=== PATIENT | male | born 1945 | race Caucasian/White ===

== ENCOUNTER 2023-06-07 12:27 | Emergency (ER) | payer MEDICARE, OTHER, SELFPAY ==
[2023-06-07] VITALS (10 sets, daily range): BP systolic 139–201; BP diastolic 61–99; BMI 25.6
[2023-06-07 13:42] LABS: % Basophils 0.4 % (0-2); % Eosinophils 0.9 % (0-6); % Immature Granulocytes 0.3 % (0-0.5); % Lymphocytes 11.6 % (20.5-51.1); % Monocytes 5.4 % (1.7-9.3); % Neutrophils 81.4 % (42.2-75.2); Absolute Eosinophils 0.1 10^3/uL (0-0.7); Absolute Lymphocytes 1.1 10^3/uL (1.2-3.4); Absolute Monocytes 0.5 10^3/uL (0.1-0.6); Absolute Neutrophils 7.9 10^3/uL (1.4-6.5); Hematocrit 33.5 % (39.0-52.0); Hemoglobin 11.8 g/dL (13.0-18.0); Mean Corp Hgb Conc. 35.2 g/dL (33.0-37.0); Mean Corpuscular Hgb 30.4 pg (27.0-31.0); Mean Corpuscular Volume 86.3 fL (80.0-94.0); Mean Platelet Volume 9.6 fL (7.4-10.4); Nucleated Red Blood Cells % 0 % (-); Platelet Count 226 10^3/uL (130-400); Red Blood Cell Count 3.88 10^6/uL (4.70-6.10); Red Cell Dist. Width 13.8 % (11.5-14.5); White Blood Cell Count 9.7 10^3/uL (4.8-10.8)
[2023-06-07 14:06] LABS: Blood Urea Nitrogen 37 mg/dl (9-20); Calcium 9.2 mg/dl (8.4-10.2); Carbon Dioxide 22 mmol/L (22-30); Chloride 108 mmol/L (98-107); Estimated Creatinine Clearance 46 ml/min; Glucose 200 mg/dl (70-99); Sodium 135 mmol/L (135-145); eGFR 51.77
--- NOTE | 2023-06-07 14:49 | ED.GENMED ---
History of Present Illness
General
Chief Complaint: Visual Problem
Source: patient
Exam Limitations: none
Time Seen by Provider: 06/07/23 13:20
Nursing documentation reviewed up to this point in time: agreed with
Travel History
Have you had any contact with someone who has COVID-19?: No
Do you have any symptoms of coronavirus? Fever > 100 degrees, chills, cough, shortness of breath, sore throat, loss of taste or smell, muscle aches, or headache?: No
History of Present Illness
History of Present Illness:
pt is a 78 y/o M with h/o IDDM, HTN, HLD, BPH
here with c/o dipolpia since yesterday am when he woke up. pt says that he doesn't know which eye is the problem
he says it is with distance but not up close and if he covers either eye, it goes away
he sees sometimes picture on top of picture and sometimes side by side
he hasn't had any headache, facial numbness, facial droop, dizziness, scalp pain, trouble swallowing, neck pain, ewakness/nubmness in the arms or legs, balance problems, slurred speech
he has had a little tearing form his right eye and redness \\
no h/o vision problems
Past History
Past History
ED Past Medical History: COPD, HTN and NIDDM
ED Past Surgical History: Appendectomy
Social History
Tobacco: Former smoker
Alcohol: Occasional
Drug: None
Family History
Family History: CAD
Review of Systems
Review of Systems
Allergies reviewed?: Yes
All Other Systems: Not applicable
Phy Exam
Physical Exam
Physical Exam:
GENERAL: Alert , in no apparent distress
EYE: pupils equal and reactive
right conjunctiva is minimally injected
slight clear tearing
slight ectropion right lower lid
eoms seem intact
no obvious lid lag
NECK: Supple
ENT: b/l TM s clear, pharynx erythematous but no tonsillar hypertrophy or exudates
CARDIAC: Regular rate and rhythm, no edema
LUNGS: Clear breath sounds bilaterally, no acute respiratory distress, no wheezes/rales/rhonchi, occ cough
ABDOMEN: Soft, without focal tenderness, no r/g, no cvat, normal bowel sounds
NEUROLOGICAL: Alert and oriented, no focal neuro deficits
i do feel that the patient sounds like his speech is a little thick
SKIN: Warm and dry, skin intact.
MUSCULOSKELETAL: No edema, well perfused.
PSYCH: Normal and appropriate interaction.
Course
Orders/Labs/Results
Orders:
Orders
06/07/23 13:31
Basic Metabolic Panel Urgent
Complete Blood Count/With Diff Urgent
06/07/23 13:46
Electrocardiogram (*1) Urgent
Reason for Study: Vertigo / Dizzy
CT Head W/o Iv Contrast Urgent
Comment:
Reason For Exam: diplopia since yesterday
EKG- Treatment ONCE
06/07/23 14:00
Add On- LAB Urgent
Tests Added?: TSH
06/07/23 14:15
Comprehensive Metabolic Panel Urgent
TSH Reflex To Free T4 Urgent
06/07/23 16:45
Ertapenem [Invanz] 1,000 mg 0.9% Sodium Chloride [Nss] 50 ml IV NOW
06/07/23 17:25
HydrALAZINE [Apresoline] 10 mg PO NOW STA
METFORMIN HCl [Glucophage] 1,000 mg PO NOW STA
06/07/23 18:09
0.9% Sodium Chloride 1000 ml [Nss] 1,000 ml IV BOLUS
06/07/23 18:16
HydrALAZINE [Apresoline] 10 mg IV NOW STA
06/07/23 18:51
Insulin Aspart [NOVOLOG vial] 2 units SC NOW STA
Abnormal Lab Results
06/07/23 06/07/23 06/07/23
13:31 14:15 17:23
RBC 3.88 L 10^6/uL
(4.70-6.10)
Hgb 11.8 L g/dL
(13.0-18.0)
Hct 33.5 L %
(39.0-52.0)
Absolute Neuts (auto) 7.9 H 10^3/uL
(1.4-6.5)
Absolute Lymphs (auto) 1.1 L 10^3/uL
(1.2-3.4)
Neutrophils % 81.4 H %
(42.2-75.2)
Lymphocytes % 11.6 L %
(20.5-51.1)
Chloride 108 H mmol/L 108 H mmol/L
(98-107) (98-107)
BUN 37 H mg/dl 36 H mg/dl
(9-20) (9-20)
Creatinine 1.4 H mg/dL 1.5 H mg/dL
(0.7-1.3) (0.7-1.3)
Glucose 200 H mg/dl 188 H mg/dl
(70-99) (70-99)
POC Glucose 228 H mg/dl
(70-99)
06/07/23 06/07/23
18:45 21:26
RBC
Hgb
Hct
Absolute Neuts (auto)
Absolute Lymphs (auto)
Neutrophils %
Lymphocytes %
Chloride
BUN
Creatinine
Glucose
POC Glucose 212 H mg/dl 126 H mg/dl
(70-99) (70-99)
06/07/23 13:31
06/07/23 14:15
Vital Signs
Initial and Last Documented VS:
Initial Vital Signs
Temp Pulse Resp BP Pulse Ox
97.8 F 60 16 139/99 96
06/07/23 12:32 06/07/23 12:32 06/07/23 12:32 06/07/23 12:32 06/07/23 12:32
Last Documented Vital Signs
Temp Pulse Resp BP Pulse Ox
98 F 65 20 181/86 97
06/07/23 21:00 06/07/23 21:00 06/07/23 21:00 06/07/23 21:00 06/07/23 21:00
MDM/Problems Addressed
MDM/Problems Addressed:
1 mary worley 78 y/o M with htn, hld, dm; c/o diplopia since yesterday AM; he sees it with distance only; says that if he covers 1 eye (either eye) he doesn' t have it; it's strange; sometimes vertical and sometimes side by side; he doesn't have
it now for my exam; no h/o myasthenia; he does have a little tearing and redness in right eye and almost a midl ectropion; no visual field cuts and i don't apprecaite any EOM weakness; i feel like his speech sounds a little thick but he doesn't
think so
w/u unremakable
d/w neurologist dr. sy who recommended admit, neuro consult and MRI.
Findings suggest a right posterior ethmoid air cell with chronic sinus disease and resultant erosion of the medial right orbital wall. Extension of presumed inflammatory sinus disease through this defect into the right orbit abutting the margin of
the medial rectus muscle. This could be the cause of patient's diplopia.
i spokie with consultant teacher ENT and opthalmologist who both recommended pt be transferred to a tertiary care center with rhinology/opthalmology
pt would prefer to stay out of the [facility], so i attempted [facility] but then they derferred to [facility]
will try [facility]
06/07/2023 1832 PM
Patient accepted by Dr. Harper at [facility] to ER transfer after I spoke with Dr. Nguyen from ENT who was recommending that the patient remain n.p.o. in case he needs to have surgery tonight patient's blood pressure has been creeping up, he
missed a dose of his hydralazine. He was given it orally but continued to have blood pressures in the 200/80 range. I added another IV dose of hydralazine
, Some fluids for his hyperglycemia
And he already received his IV antibiotics.
*Critical Care Note
Total Time (30-74mins, 75-104mins- exclusive of procedures): Not Applicable
ED Attending Note
-
Portions of this chart may have been created with voice recognition software.� Occasional wrong word or��sound alike� substitutions may have occurred due to the inherent limitations of voice recognition software.
Discharge Plan
Departure
Patient Disposition: Acute Care Hospital
Date of Disposition: 06/07/23
Time of Disposition: 18:24
Condition: Fair
Discharge Problem:
Suppurative sinusitis with complications, Diplopia
Prescriptions:
No Action
hydralazine 10 MG tablet
10 mg PO TID
metformin 1,000 MG tablet
1,000 mg PO BID@0800,1700
flecainide 100 MG tablet
100 mg PO Q12H
insulin lispro [Humalog KwikPen Insulin] 100 UNIT/ML insulin pen
5 units SC MEALS
Xarelto 15 MG tablet
15 mg PO QPM
finasteride 5 MG tablet
5 mg PO DAILY
cyanocobalamin (vitamin B-12) 1,000 MCG tablet
1,000 mcg PO DAILY Qty: 30 0RF
diltiazem HCl 120 mg Capsule,Extended Release 12 Hr
120 mg PO DAILY
Patient Comments:
06/07/23- patient stated he is on the 12hr capsules cause he didnt want to pay for 24 hr but he knows he suppose to be on the 24hours
valsartan 160 mg Tablet
160 mg PO DAILY
rosuvastatin [Crestor] 20 mg Tablet
20 mg PO QPM
duloxetine [Cymbalta] 30 mg Capsule,Delayed Release(Dr/Ec)
30 mg PO QPM
Levemir FlexPen 100 unit/mL (3 mL) Insulin Pen
30 unit SC HS
Referrals:
Bartolome Hitchcock MD [Family Provider] -
Hospital Transfer
Other hospital: [facility]
I certify that the patient requires transfer: Yes
Discussed case with accepting physician: ton
Reason for transfer: higher level of care
Interventions
Interventions:
*Risk Screen - Suicide Last Done: 06/07/23 12:32
*General Assessment Last Done: 06/07/23 13:24
*Neglect/Abuse Screening Last Done: 06/07/23 12:32
ED- Fall Risk Assessment Last Done: 06/07/23 13:24
*ED COVID-19 Vaccine History Last Done: 06/07/23 12:32
*Nursing Disposition Last Done: 06/07/23 19:28
ED- Neurological Assessment Last Done: 06/07/23 21:00
ED-EENT Assessment Last Done: 06/07/23 21:00
ED Swallowing Screen Last Done: 06/07/23 18:48
Discharge Date and Time
Discharge Date/Time: 06/07/23 21:30
[2023-06-07 14:58] LABS: ALT (SGPT) 27 U/L (0-50); AST (SGOT) 28 U/L (17-59); Albumin 3.8 g/dl (3.5-5.0); Alkaline Phosphatase 110 U/L (38-126); Blood Urea Nitrogen 36 mg/dl (9-20); Calcium 9.2 mg/dl (8.4-10.2); Carbon Dioxide 24 mmol/L (22-30); Chloride 108 mmol/L (98-107); Estimated Creatinine Clearance 43 ml/min; Glucose 188 mg/dl (70-99); Potassium 4.4 mmol/L (3.5-5.1); Sodium 137 mmol/L (135-145); Total Bilirubin 0.6 mg/dl (0.2-1.3); Total Protein 6.4 g/dl (6.3-8.2); eGFR 47.65
[2023-06-07 15:12] LABS: TSH Reflex To Free T4 0.64 uIU/ml (0.47-4.68)
[2023-06-07 17:25] LABS: Glucose - Point of Care 228 mg/dl (70-99)
[2023-06-07] MEDS: GLUCOPHAGE 1000 MG PO (17:36)
[2023-06-07] MEDS: INVANZ 60 MG IV (17:36)
[2023-06-07] MEDS: APRESOLINE 10 MG PO (17:36)
[2023-06-07] MEDS: APRESOLINE 10 MG IV (18:42)
[2023-06-07 18:47] LABS: Glucose - Point of Care 212 mg/dl (70-99)
[2023-06-07] MEDS: NOVOLOG vial 2 UNITS SC (19:40)
[2023-06-07 21:27] LABS: Glucose - Point of Care 126 mg/dl (70-99)
== END 2023-06-07 21:30 | disposition short-term general hospital (02) ==
LOC: EMR 12:27
PROVIDERS: Physician Assistant; EMERGENCY PHYSICIAN Emergency Medicine; FAMILY PHYSICIAN Family Medicine
DX: H53.2 Diplopia (principal); J01.90 Acute sinusitis, unspecified; E11.65 Type 2 diabetes mellitus with hyperglycemia; I10 Essential (primary) hypertension; E78.5 Hyperlipidemia, unspecified; N40.0 Benign prostatic hyperplasia without lower urinary tract symptoms
CPT/HCPCS: 99285; 96374; 96375; 96372; 70450; 80048; 80053; 82962; 84443; 85025; 93005; J1335

== ENCOUNTER → 2023-09-04 07:09 | Outpatient (REF) | payer MEDICARE, OTHER, SELFPAY ==
[2023-09-04 08:19] LABS: % Basophils 0.9 % (0-2); % Eosinophils 3.5 % (0-6); % Immature Granulocytes 0.3 % (0-0.5); % Lymphocytes 14.5 % (20.5-51.1); % Monocytes 7.7 % (1.7-9.3); % Neutrophils 73.1 % (42.2-75.2); Absolute Basophils 0.1 10^3/uL (0-0.2); Absolute Eosinophils 0.2 10^3/uL (0-0.7); Absolute Monocytes 0.5 10^3/uL (0.1-0.6); Absolute Neutrophils 5.1 10^3/uL (1.4-6.5); Hematocrit 41.8 % (39.0-52.0); Hemoglobin 13.7 g/dL (13.0-18.0); Mean Corp Hgb Conc. 32.8 g/dL (33.0-37.0); Mean Corpuscular Hgb 29.8 pg (27.0-31.0); Mean Corpuscular Volume 90.9 fL (80.0-94.0); Mean Platelet Volume 9.9 fL (7.4-10.4); Nucleated Red Blood Cells % 0 % (-); Platelet Count 241 10^3/uL (130-400); White Blood Cell Count 6.9 10^3/uL (4.8-10.8)
[2023-09-04 08:56] LABS: Protein/creatinine Ratio 0.8; Urine Protein 55 mg/dl
[2023-09-04 09:15] LABS: ALT (SGPT) 38 U/L (0-50); AST (SGOT) 44 U/L (17-59); Albumin 4.3 g/dl (3.5-5.0); Alkaline Phosphatase 112 U/L (38-126); Blood Urea Nitrogen 41 mg/dl (9-20); Calcium 10.4 mg/dl (8.4-10.2); Carbon Dioxide 26 mmol/L (22-30); Chloride 107 mmol/L (98-107); Glucose 123 mg/dl (70-99); HDL Cholesterol 61 mg/dl; LDL Cholesterol, Calculated 93 mg/dl; Potassium 5.1 mmol/L (3.5-5.1); Sodium 141 mmol/L (135-145); Total Bilirubin 0.4 mg/dl (0.2-1.3); Total Cholesterol 174 mg/dl (50-199); Total Protein 7.3 g/dl (6.3-8.2); Triglyceride 101 mg/dl (10-149); Very Low Density Lipoprotein 20 mg/dl (0-30); eGFR 51.77
[2023-09-04 09:29] LABS: Microalbumin, Random Urine 28.2 mg/dl (0.6-1.7); Microalbumin/creatinine Ratio 420.3 mg/g
== END ==
LOC: REG 07:09
PROVIDERS: ATTENDING PHYSICIAN Physician Assistant; FAMILY PHYSICIAN Family Medicine
DX: E11.65 Type 2 diabetes mellitus with hyperglycemia (principal)
CPT/HCPCS: 36415; 80053; 80061; 82043; 82570; 83036; 84156; 85025

== ENCOUNTER → 2024-05-11 07:23 | Outpatient (REF) | payer MEDICARE, OTHER, SELFPAY ==
[2024-05-11 09:11] LABS: % Basophils 0.5 % (0-2); % Eosinophils 2.5 % (0-6); % Immature Granulocytes 0.3 % (0-0.5); % Lymphocytes 15.3 % (20.5-51.1); % Monocytes 7.6 % (1.7-9.3); % Neutrophils 73.8 % (42.2-75.2); Absolute Eosinophils 0.2 10^3/uL (0-0.7); Absolute Lymphocytes 1.1 10^3/uL (1.2-3.4); Absolute Monocytes 0.6 10^3/uL (0.1-0.6); Absolute Neutrophils 5.4 10^3/uL (1.4-6.5); Hematocrit 40.1 % (39.0-52.0); Hemoglobin 13.5 g/dL (13.0-18.0); Mean Corp Hgb Conc. 33.7 g/dL (33.0-37.0); Mean Corpuscular Hgb 30.3 pg (27.0-31.0); Mean Corpuscular Volume 89.9 fL (80.0-94.0); Nucleated Red Blood Cells % 0 % (-); Platelet Count 227 10^3/uL (130-400); Red Blood Cell Count 4.46 10^6/uL (4.70-6.10); Red Cell Dist. Width 14.3 % (11.5-14.5); White Blood Cell Count 7.3 10^3/uL (4.8-10.8)
[2024-05-11 09:40] LABS: Glycohemoglobin (HgbA1c) 7.1 % (4.0-5.6)
[2024-05-11 09:49] LABS: ALT (SGPT) 32 U/L (0-50); AST (SGOT) 34 U/L (17-59); Albumin 4.4 g/dl (3.5-5.0); Alkaline Phosphatase 116 U/L (38-126); Blood Urea Nitrogen 41 mg/dl (9-20); Calcium 10.3 mg/dl (8.4-10.2); Carbon Dioxide 27 mmol/L (22-30); Chloride 102 mmol/L (98-107); Glucose 190 mg/dl (70-99); HDL Cholesterol 61 mg/dl; LDL Cholesterol, Calculated 87 mg/dl; Potassium 5.1 mmol/L (3.5-5.1); Sodium 138 mmol/L (135-145); Total Bilirubin 0.7 mg/dl (0.2-1.3); Total Cholesterol 176 mg/dl (50-199); Total Protein 6.9 g/dl (6.3-8.2); Triglyceride 141 mg/dl (10-149); Very Low Density Lipoprotein 28 mg/dl (0-30); eGFR 43.83
== END ==
LOC: REG 07:23
PROVIDERS: ATTENDING PHYSICIAN Physician Assistant; FAMILY PHYSICIAN Family Medicine
DX: E11.65 Type 2 diabetes mellitus with hyperglycemia (principal)
CPT/HCPCS: 36415; 80053; 80061; 83036; 85025

== ENCOUNTER → 2024-10-12 07:23 | Outpatient (REF) | payer MEDICARE, OTHER, SELFPAY ==
[2024-10-12 09:10] LABS: Hematocrit 38.9 % (39.0-52.0); Hemoglobin 12.9 g/dL (13.0-18.0); Mean Corp Hgb Conc. 33.2 g/dL (33.0-37.0); Mean Corpuscular Volume 91.5 fL (80.0-94.0); Nucleated Red Blood Cells % 0 % (-); Platelet Count 236 10^3/uL (130-400); Red Cell Dist. Width 14.1 % (11.5-14.5)
[2024-10-12 09:55] LABS: ALT (SGPT) 27 U/L (0-50); AST (SGOT) 28 U/L (17-59); Albumin 4.3 g/dl (3.5-5.0); Alkaline Phosphatase 99 U/L (38-126); Blood Urea Nitrogen 34 mg/dl (9-20); Calcium 9.8 mg/dl (8.4-10.2); Carbon Dioxide 23 mmol/L (22-30); Chloride 109 mmol/L (98-107); Glucose 117 mg/dl (70-99); HDL Cholesterol 52 mg/dl; LDL Cholesterol, Calculated 89 mg/dl; Potassium 4.8 mmol/L (3.5-5.1); Sodium 141 mmol/L (135-145); Total Protein 7.0 g/dl (6.3-8.2); Very Low Density Lipoprotein 22 mg/dl (0-30); eGFR 47.36
[2024-10-12 10:05] LABS: Glycohemoglobin (HgbA1c) 7.5 % (4.0-5.6)
[2024-10-12 10:23] LABS: TSH 2.11 uIU/ml (0.47-4.68)
[2024-10-12 10:33] LABS: Microalbumin, Random Urine 14.8 mg/dl (0.6-1.7)
== END ==
LOC: REG 07:23
PROVIDERS: ATTENDING PHYSICIAN Physician Assistant
DX: E11.65 Type 2 diabetes mellitus with hyperglycemia (principal); R80.9 Proteinuria, unspecified
CPT/HCPCS: 36415; 80053; 80061; 82043; 82570; 83036; 84156; 84443; 85025

== ENCOUNTER → 2025-02-28 06:54 | Outpatient (REF) | payer MEDICARE, OTHER, SELFPAY ==
[2025-02-28 08:46] LABS: Albumin 4.3 g/dl (3.5-5.0); Blood Urea Nitrogen 32 mg/dl (9-20); Calcium 9.8 mg/dl (8.4-10.2); Carbon Dioxide 28 mmol/L (22-30); Chloride 104 mmol/L (98-107); Glucose 153 mg/dl (70-99); Potassium 4.8 mmol/L (3.5-5.1); Sodium 138 mmol/L (135-145); eGFR 47.06
== END ==
LOC: REG 06:54
PROVIDERS: ATTENDING PHYSICIAN Specialist
DX: N18.31 Chronic kidney disease, stage 3a (principal)
CPT/HCPCS: 36415; 80069; 83970

== ENCOUNTER → 2025-03-24 11:42 | Outpatient (REF) | payer MEDICARE, OTHER, SELFPAY ==
[2025-03-24 17:24] LABS: ALT (SGPT) 35 U/L (0-50); AST (SGOT) 34 U/L (17-59); Albumin 4.4 g/dl (3.5-5.0); Alkaline Phosphatase 144 U/L (38-126); Blood Urea Nitrogen 61 mg/dl (9-20); Calcium 9.7 mg/dl (8.4-10.2); Carbon Dioxide 18 mmol/L (22-30); Chloride 108 mmol/L (98-107); Glucose 253 mg/dl (70-99); Iron 110 ug/dl (49-181); Potassium 6.9 mmol/L (3.5-5.1); Sodium 137 mmol/L (135-145); Total Protein 7.3 g/dl (6.3-8.2); eGFR 33.32
[2025-03-24 17:32] LABS: Total Iron Binding Capacity 382 ug/dl (261-462)
[2025-03-24 17:39] LABS: Hematocrit 40.0 % (39.0-52.0); Hemoglobin 12.8 g/dL (13.0-18.0); Mean Corp Hgb Conc. 32.0 g/dL (33.0-37.0); Mean Corpuscular Volume 94.3 fL (80.0-94.0); Nucleated Red Blood Cells % 0 % (-); Platelet Count 274 10^3/uL (130-400); Red Cell Dist. Width 14.6 % (11.5-14.5)
[2025-03-24 17:59] LABS: Ferritin 22.8 ng/ml (17.9-464.0)
[2025-03-24 18:30] LABS: Folate 16.8 ng/ml (2.76-20); Vitamin B12 991 pg/ml (239-931)
[2025-03-24 20:15] LABS: TSH 1.72 uIU/ml (0.47-4.68)
== END ==
LOC: RAD 11:42
PROVIDERS: ATTENDING PHYSICIAN Physician Assistant Medical; FAMILY PHYSICIAN Family Medicine
DX: R06.02 Shortness of breath (principal); R74.01 Elevation of levels of liver transaminase levels; E53.8 Deficiency of other specified B group vitamins; I48.21 Permanent atrial fibrillation; R53.83 Other fatigue; R29.898 Other symptoms and signs involving the musculoskeletal system; R42 Dizziness and giddiness
CPT/HCPCS: 36415; 71046; 80053; 82607; 82728; 82746; 83540; 83550; 84443; 85025

== ENCOUNTER 2025-03-24 18:15 | Emergency (ER) | payer MEDICARE, OTHER, SELFPAY ==
[2025-03-24 18:20] VITALS: BP 198/84
[2025-03-24 18:57] LABS: Potassium 5.4 mmol/L (3.5-5.1)
--- NOTE | 2025-03-24 21:21 | ED.GENMED ---
History of Present Illness
<Quinton Smith DO, Resident - Last Filed: 03/24/25 22:04>
General
Chief Complaint: Abnormal Lab Value
Source: patient
Exam Limitations: none
Time Seen by Provider: 03/24/25 20:44
Nursing documentation reviewed up to this point in time: agreed with
History of Present Illness
History of Present Illness:
Garret Youssef is a 80M w/ PMHX of PAD, HTN, COPD, IDDM, permanent atrial fib, and CKD who is presenting for hyperkalemia of 6.9 on outpatient lab work. Patient states the he was started on spironolactone approximately 3 weeks ago, and his Losartan
dose was increased about 6 weeks ago. Symptomatically, the patient only endorses a weakness in his legs which has been going on for a couple of weeks and is being worked up by his PCP. Otherwise, healso endorses a mild dizziness that he
characterizes as a very transient lightheadedness when getting up from a seated position, that goes away within seconds.
Otherwise, the patient denies any acute complaints, and denies [place], visual changes hearing changes, recent upper respiratory infections, shortness of breath, chest pain, palpitation, abdominal pain, n/v/d/c, urinary sx, numbness or tingling.
Secondarily states that he has been having some mild wheezing and cough that is chronic, and an expected symptomatology for his COPD.
Past History
<Quinton Smith DO, Resident - Last Filed: 03/24/25 22:04>
Past History
ED Past Medical History: COPD, HTN and NIDDM
ED Past Surgical History: Appendectomy
Social History
Tobacco: Former smoker
Alcohol: Occasional
Drug: None
Family History
Family History: CAD
Review of Systems
<Quinton Smith DO, Resident - Last Filed: 03/24/25 22:04>
Review of Systems
Allergies reviewed?: Yes
All Other Systems: ROS reviewed and negative except as documented in HPI and ROS
Phy Exam
<Quinton Smith DO, Resident - Last Filed: 03/24/25 22:04>
Physical Exam
Physical Exam:
General: well-developed, well-nourished male in no acute distress
HEENT: EOMI, sclera anicteric, Normocephalic, atraumatic
CV: Irregular rhythm, no murmurs, rubs, gallops
Lungs: Occasional wheeze, no rales, no rhonchi
Abdomen: Soft, nondistended
Neuro: AO X3, moving all fours, follows commands
MSK: No clubbing, no cyanosis, no edema
Psych: Calm, normal affect
Course
<Quinton Smith DO, Resident - Last Filed: 03/24/25 22:04>
Orders/Labs/Results
Orders:
Orders
03/24/25 18:32
Potassium Urgent
03/24/25 21:16
EKG [Electrocardiogram (*1)] Stat
Reason for Study: Other
Other Reason for Exam: Hyperkalemia
EKG- Treatment ONCE
Sodium Zirconium Cyclosilicate [Lokelma] 5 gram PO NOW STA
Abnormal Lab Results
03/24/25
18:32
Potassium 5.4 H mmol/L
(3.5-5.1)
03/24/25 18:23
03/24/25 18:32
Vital Signs
Initial and Last Documented VS:
Initial Vital Signs
Temp Pulse Resp BP Pulse Ox
97.4 F 79 18 198/84 97
03/24/25 18:20 03/24/25 18:20 03/24/25 18:20 03/24/25 18:20 03/24/25 18:20
Last Documented Vital Signs
Temp Pulse Resp BP Pulse Ox
97.4 F 66 24 198/84 97
03/24/25 18:20 03/24/25 21:45 03/24/25 21:45 03/24/25 18:20 03/24/25 21:33
<Aamir Sanchez DO - Last Filed: 03/24/25 21:53>
Orders/Labs/Results
Orders:
Orders
03/24/25 18:32
Potassium Urgent
03/24/25 21:16
EKG [Electrocardiogram (*1)] Stat
Reason for Study: Other
Other Reason for Exam: Hyperkalemia
EKG- Treatment ONCE
Sodium Zirconium Cyclosilicate [Lokelma] 5 gram PO NOW STA
Abnormal Lab Results
03/24/25
18:32
Potassium 5.4 H mmol/L
(3.5-5.1)
03/24/25 18:23
03/24/25 18:32
Vital Signs
Initial and Last Documented VS:
Initial Vital Signs
Temp Pulse Resp BP Pulse Ox
97.4 F 79 18 198/84 97
03/24/25 18:20 03/24/25 18:20 03/24/25 18:20 03/24/25 18:20 03/24/25 18:20
Last Documented Vital Signs
Temp Pulse Resp BP Pulse Ox
97.4 F 66 24 198/84 97
03/24/25 18:20 03/24/25 21:45 03/24/25 21:45 03/24/25 18:20 03/24/25 21:33
<Quinton Smith DO, Resident - Last Filed: 03/24/25 22:04>
MDM/Problems Addressed
Differential Diagnosis Includes:
hyperkalemia secondary to medication side effect, dehydration, or rhabdomyolysis
MDM/Problems Addressed:
80M PMHx PD, HTN, COPD, IDDM, permanent atrial fibrillation, and CKD who presented after outpatient labs showed MIKE of 6.9. Repeat K here was 5.4. Ordered stat EKG and 5 mg dose of Lokelma. Given history, I doubt there is a component of
rhabdomyelosis. Patient does not appear dehydrated and endorses good hydration. It is likely that the case elevated in the setting of recent medication changes including addition of spironolactone 3 weeks ago.
Lokelma given. Patient instructed to hold spironolactone until seen by [facility] operator or primary care provider. Patient follow-up with [facility] operator or primary care provider in a few days. Patient's blood pressure remains high however, so instructed
patient to increase his dose of hydralazine to 20 mg 3 times daily Until a more definitive hypertensive regimen is discussed with either his primary care provider or [facility] operator.
<Quinton Smith DO, Resident - Last Filed: 03/24/25 22:04>
*Pulse Oximetry
SaO2: 97
Oxygen Mode of Delivery: Room air
Patient hypoxic: no
*Critical Care Note
Total Time (30-74mins, 75-104mins- exclusive of procedures): Not Applicable
ED Attending Note
<Quinton Smith DO, Resident - Last Filed: 03/24/25 22:04>
-
Portions of this chart may have been created with voice recognition software.� Occasional wrong word or��sound alike� substitutions may have occurred due to the inherent limitations of voice recognition software.
<Aamir Sanchez DO - Last Filed: 03/24/25 21:53>
ED Attending Note
Patient seen and examined by attending physician: Yes
I performed a history and physical exam of patient and discussed management with resident, I reviewed resident's note and agree with documented findings and plan of care.: Yes
ED Attending Note:
I have seen and evaluated the patient with a [id number] encounter. I have spoken to the resident and involved in the medical history, the physical exam, medical decision making.
Evaluation and management service: agree unless noted differently below.
Results interpretation: agree unless noted differently below.
Focused HPI: 80-year-old male presenting for evaluation of elevated potassium. Patient had blood work performed earlier today with concern for an elevated potassium greater than 6. He was encouraged to go to the hospital. Patient states he feels
mildly weak and fatigued but denies any other complaints
Physical exam: Sitting bed comfortably. No leg edema. Heart regular rate and rhythm
Medical Decision Making: Potassium elevated but lower than earlier this morning. He did not take any medicine to lower the potassium. It is currently 5.4. Unsure if the recorded hyperkalemia earlier today was due to hemolysis. Will obtain EKG to
rule out any evidence of endorgan damage. I did evaluate the blood work done earlier today and patient has chronic kidney disease. Will ultimately give dose of Lokelma and discussed follow-up with PCP to have the blood work rechecked. Discussed
holding spironolactone until having this discussion with PCP
Discharge Plan
Departure
Patient Disposition: Home (Routine Discharge)
Date of Disposition: 03/24/25
Time of Disposition: 21:55
Patient with high blood pressure during this ER visit?: Yes
Condition: Good
Discharge Problem:
Hyperkalemia, Hypertension
Instructions: Hyperkalemia (DC), BLOOD PRESSURE
Prescriptions:
No Action
hydralazine 10 MG tablet
10 mg PO TID
metformin 1,000 MG tablet
1,000 mg PO BID@0800,1700
flecainide 100 MG tablet
100 mg PO Q12H
insulin lispro [Humalog KwikPen Insulin] 100 UNIT/ML insulin pen
5 units SC MEALS
Xarelto 15 MG tablet
15 mg PO QPM
finasteride 5 MG tablet
5 mg PO DAILY
cyanocobalamin (vitamin B-12) 1,000 MCG tablet
1,000 mcg PO DAILY Qty: 30 0RF
diltiazem HCl 120 mg Capsule,Extended Release 12 Hr
120 mg PO DAILY
Patient Comments:
06/07/23- patient stated he is on the 12hr capsules cause he didnt want to pay for 24 hr but he knows he suppose to be on the 24hours
valsartan 160 mg Tablet
160 mg PO DAILY
rosuvastatin [Crestor] 20 mg Tablet
20 mg PO QPM
duloxetine [Cymbalta] 30 mg Capsule,Delayed Release(Dr/Ec)
30 mg PO QPM
Levemir FlexPen 100 unit/mL (3 mL) Insulin Pen
30 unit SC HS
Referrals:
Bartolome Hitchcock MD [Family Provider, [facility]]
Activity Restrictions/Additional Instructions:
You were found to have a high potassium level. Your EKG was unremarkable. One of the medications you are taking, spironolactone, is known to cause a high potassium level. You should stop taking this medication for the time being. For additional
blood pressure control, you should take hydralazine 20 mg 3 times a day. Do this until you are given additional instruction by your primary care provider or [facility] operator. You should follow-up with your primary care provider or [facility] operator within
the next few days for additional instructions and medication recommendations.
Interventions
Interventions:
*General Assessment Last Done: 03/24/25 18:21
*Neglect/Abuse Screening Last Done: 03/24/25 18:21
*ED COVID-19 Vaccine History Last Done: 03/24/25 18:21
*ED Influenza Vaccine History Last Done: 03/24/25 18:21
*Risk Screen - Suicide (C-SSRS) Last Done: 03/24/25 18:21
Discharge Date and Time
Print Language: PORTUGUESE
[2025-03-24] MEDS: LOKELMA 5 GRAM PO (21:48)
[2025-03-24 22:11] VITALS: BP 183/60
== END 2025-03-24 22:16 | disposition home or self-care (01) ==
LOC: EMR 18:15
PROVIDERS: Student in an Organized Health Care Education/Training Program; EMERGENCY PHYSICIAN Student in an Organized Health Care Education/Training Program; FAMILY PHYSICIAN Family Medicine
DX: E87.5 Hyperkalemia (principal); I12.9 Hypertensive chronic kidney disease with stage 1 through stage 4 chronic kidney disease, or unspecified chronic kidney disease; E11.22 Type 2 diabetes mellitus with diabetic chronic kidney disease; N18.9 Chronic kidney disease, unspecified; I73.9 Peripheral vascular disease, unspecified; J44.9 Chronic obstructive pulmonary disease, unspecified; I48.21 Permanent atrial fibrillation; Z79.899 Other long term (current) drug therapy; Z82.49 Family history of ischemic heart disease and other diseases of the circulatory system; Z87.891 Personal history of nicotine dependence; Z90.49 Acquired absence of other specified parts of digestive tract
CPT/HCPCS: 99283; 84132; 93005